=== PATIENT | female | born 1950 | race Caucasian/White ===

== ENCOUNTER → 2020-12-22 | Outpatient (CLI) | payer OTHER ==
[~2020-12-22] MED LIST: ALEVE220 M1 PO; ANASTROZOLE1 MG PO; ASPIRIN EC81 MG PO; CELECOXIB200 MG PO; CRESTOR5 MG PO; DAILY MULTIPLE1 EAC1 PO; DULERA 100 MCG8.8 GM INH; ESCITALOPRAM OX20 MG PO; HYDROCODON-ACE1 EAC6 PO; JANUVIA50 MG PO; LOSARTAN POTAS100 MG PO; NEURONTIN300 MG PO; OXYCODONE HCL5 MG PO; ZOFRAN 4 MG TAB4 MG PO
== END ==
LOC: KOH-I 08:00
DX: M84.312A Stress fracture, left shoulder, initial encounter for fracture (principal); S42.202A Unspecified fracture of upper end of left humerus, initial encounter for closed fracture; Z96.612 Presence of left artificial shoulder joint; X58.XXXA Exposure to other specified factors, initial encounter
CPT/HCPCS: 73200

== ENCOUNTER → 2021-01-25 | Outpatient (CLI) | payer MEDICARE, OTHER | LOC: EXRD 08:30 | DX: Z13.820 Encounter for screening for osteoporosis (principal); M81.0 Age-related osteoporosis without current pathological fracture; S42.293A Other displaced fracture of upper end of unspecified humerus, initial encounter for closed fracture | CPT/HCPCS: 77080 ==

== ENCOUNTER → 2021-10-16 | Outpatient (CLI) | payer MEDICARE, OTHER | LOC: CT 15:00 | DX: U07.1 COVID-19 (principal); R79.89 Other specified abnormal findings of blood chemistry | CPT/HCPCS: 36415; 71275; 82565; 84520 ==